=== PATIENT | male | born 1995 | race Caucasian/White ===

== ENCOUNTER → 2019-04-11 | Outpatient (CLI) | payer OTHER ==
[~2019-04-11] MED LIST: PROHANCE 279.3MG/ML 15ML VIAL (A9576) As Ordered ONE
--- NOTE | 2019-04-11 13:58 | REP ---
MRI study of the abdomen without and with IV contrast: History: Tubulo-interstitial nephritis. Inflamed kidneys on [facility] CT study. This showed bilaterally heterogeneous contrast enhancement. Technique: Axial and coronal imaging planes utilized. T1 and T2-weighted sequences include spin-echo, fast spin echo, in and [id number], gradient echo, and sequentially acquired dynamic postcontrast T1 fat sat images. 15 ml of intravenous ProHance is administered. MRI findings: The liver and spleen are normal in size homogeneous in texture. No focal lesion is seen. No filling defect is seen in the gallbladder. No biliary ductal dilation is observed. The pancreas is unremarkable. No adrenal lesion is seen on either side. The kidneys are morphologically intact on T1 and T2-weighted scans and enhance symmetrically. Enhancement by MRI is homogeneous. There is no evidence of focal cortical scarring or perinephric fat streaking or edema. No hydronephrosis is seen. There is no evidence of ascites. No retroperitoneal mass or adenopathy is seen. Visualized bowel loops are unremarkable. Impression: No significant abnormality. Electronically Signed by Luis Christina MD 04/11/2019 01:49 P
== END ==
LOC: M RAD 09:57
PROVIDERS: ATTEND Internal Medicine Nephrology
DX: N12 Tubulo-interstitial nephritis, not specified as acute or chronic (principal)
CPT/HCPCS: 74183; A9576